=== PATIENT | male | born 1985 | race Caucasian/White ===

== ENCOUNTER → 2017-07-15 | Outpatient (CLI) | payer OTHER ==
[~2017-07-15] MED LIST: Bactrim Ds Tab1 EACH PO; CEPH500 PO; CRUTCH2 USE; CYCL10 PO; Cephalexin250 MG/5 M PO; HYDACE5325 PO; HYDCHL12.5 PO; Keflex500 MG PO; LORA2 PO; NAPR500 PO; OXYACE5T PO; RXLORA1 PO; SULTRIEL PO
[2017-07-15 18:27] LABS: BASOPHILS ABSOLUTE AUTO 0.04 K/mm3 (0.00-0.23); BASOPHILS PERCENT AUTO 1 % (0-2); EOSINOPHILS ABSOLUTE AUTO 0.06 K/mm3 (0.00-0.68); EOSINOPHILS PERCENT AUTO 1 % (0-6); Hematocrit 43.7 % (37.0-53.0); Hemoglobin 14.5 g/dL (13.5-17.5); IMMATURE GRAN ABSOLUTE AUTO 0.01 K/mm3 (0.00-0.10); IMMATURE GRAN PERCENT AUTO 0 % (0-1); LYMPHOCYTES ABSOLUTE AUTO 0.65 K/mm3 (0.84-5.20); LYMPHOCYTES PERCENT AUTO 15 % (21-46); MONOCYTES ABSOLUTE AUTO 0.65 K/mm3 (0.16-1.47); MONOCYTES PERCENT AUTO 15 % (4-13); Mean Corpuscular HGB 31.9 pg (26.0-34.0); Mean Corpuscular HGB Conc 33.2 g/dL (31.5-36.5); Mean Corpuscular Volume 96 fL (80-100); NEUTROPHILS ABSOLUTE AUTO 2.81 K/mm3 (1.96-9.15); NEUTROPHILS PERCENT AUTO 67 % (41-73); RDW Standard Deviation 42.2 fL (35.1-46.3); Red Blood Cell Count 4.55 M/mm3 (4.30-5.90); White Blood Cell Count 4.22 K/mm3 (4.00-11.30)
[2017-07-15 18:36] LABS: Mean Platelet Volume 11.6 fL (9.1-12.4); Platelet Count 101 K/mm3 (150-400)
[2017-07-15 18:40] LABS: Alanine Aminotransfer (ALT/SGP 49 U/L (12-78); Albumin, Blood 3.8 g/dL (3.4-5.0); Albumin/Globulin Ratio 0.8 (0.8-1.8); Alk Phos 173 U/L (50-136); Anion Gap 10 mmol/L (6-16); Aspartate Aminotrans (AST/SGOT 108 U/L (12-37); Bilirubin, Total 1.1 mg/dL (0.1-1.0); Blood Urea Nitrogen 5 mg/dL (8-24); CO2, Blood 28 mmol/L (21-32); Calcium, Blood 9.1 mg/dL (8.5-10.1); Chloride, Blood 97 mmol/L (98-108); Glomerular Filtration Rate >60 (60-); Glucose, Blood 88 mg/dL (70-99); Potassium, Blood 4.1 mmol/L (3.5-5.5); Sodium, Blood 135 mmol/L (136-145); Total Protein, Blood 8.8 g/dL (6.4-8.2)
== END | disposition home or self-care (01) ==
LOC: LAB 11:15
PROVIDERS: Nurse Practitioner Family
DX: Z00.00 Encounter for general adult medical examination without abnormal findings (principal); E55.9 Vitamin D deficiency, unspecified; I10 Essential (primary) hypertension
CPT/HCPCS: 80053; 82306; 84443; 85025

== ENCOUNTER 2018-10-29 20:50 | Emergency (ER) | payer OTHER ==
[~2018-10-29] VITALS: Ht 170.2 cm; Wt 59.0 kg
== END 2018-10-30 01:20 | disposition home or self-care (01) ==
LOC: ER 20:50
DX: S92.002A Unspecified fracture of left calcaneus, initial encounter for closed fracture (principal); Y30.XXXA Falling, jumping or pushed from a high place, undetermined intent, initial encounter
CPT/HCPCS: 29515; 73650; 73700; 96372-59; 99283-25; J1885

== ENCOUNTER 2020-03-16 19:40 | Emergency (ER) | payer OTHER ==
[~2020-03-16] VITALS: Ht 172.7 cm; Wt 63.5 kg
[2020-03-17] MEDS ORDERED: Norco 5-325 Ta1 EACH PO (08:40)
== END 2020-03-16 21:45 | disposition home or self-care (01) ==
LOC: ER 19:40
DX: S42.032A Displaced fracture of lateral end of left clavicle, initial encounter for closed fracture (principal); F17.220 Nicotine dependence, chewing tobacco, uncomplicated; V86.55XA Driver of 3- or 4- wheeled all-terrain vehicle (ATV) injured in nontraffic accident, initial encounter
CPT/HCPCS: 73030; 96372; 99283-25; J1885

== ENCOUNTER 2021-04-08 06:42 | Inpatient (IN) | payer OTHER ==
[~2021-04-08] VITALS: Ht 172.7 cm; Wt 65.5 kg
[~2021-04-08 06:42] MED LIST changes: +Norco 5-325 Ta1 EACH PO
[2021-04-08 07:58] LABS: Hematocrit 46.8 % (37.0-53.0); Hemoglobin 15.8 g/dL (13.5-17.5); Mean Corpuscular HGB 31.3 pg (26.0-34.0); Mean Corpuscular HGB Conc 33.8 g/dL (31.5-36.5); Mean Corpuscular Volume 93 fL (80-100); Mean Platelet Volume 8.9 fL (9.1-12.4); Platelet Count 193 K/mm3 (150-400); RDW Coefficient Variation 12.1 % (11.7-14.2); RDW Standard Deviation 41.9 fL (35.1-46.3); Red Blood Cell Count 5.05 M/mm3 (4.30-5.90); White Blood Cell Count 17.59 K/mm3 (4.00-11.30)
[2021-04-08 08:19] LABS: Alanine Aminotransfer (ALT/SGP 34 U/L (12-78); Albumin, Blood 2.9 g/dL (3.4-5.0); Albumin/Globulin Ratio 0.6 (0.8-1.8); Alk Phos 54 U/L (50-136); Anion Gap 13 mmol/L (6-16); Aspartate Aminotrans (AST/SGOT 58 U/L (12-37); Bilirubin, Total 1.3 mg/dL (0.1-1.0); Blood Urea Nitrogen 9 mg/dL (8-24); Bun/Creatinine Ratio 13.5 (12.0-20.0); CO2, Blood 21 mmol/L (21-32); Calcium, Blood 8.3 mg/dL (8.5-10.1); Chloride, Blood 94 mmol/L (98-108); Creatinine, Blood 0.67 mg/dL (0.60-1.20); Ethanol (Alcohol), Blood, Med 29 mg/dL; Globulin, Blood 4.9 g/dL (2.2-4.0); Glomerular Filtration Rate >60 (60-); Glucose, Blood 94 mg/dL (70-99); Potassium, Blood 3.6 mmol/L (3.5-5.5); Sodium, Blood 128 mmol/L (136-145); Total Protein, Blood 7.8 g/dL (6.4-8.2)
[2021-04-08 08:26] LABS: BAND PERCENT MAN 21 % (0-8); BASOPHILS PERCENT MAN 0 % (0-2); EOSINOPHILS PERCENT MAN 0 % (0-6); METAMYELOCYTE PERCENT MAN 4 % (0-0); MONOCYTES ABSOLUTE MAN 0.17 K/mm3 (0.16-1.47); MONOCYTES PERCENT MAN 1 % (4-13); MYELOCYTE ABSOLUTE MAN 0.35 K/mm3 (0.00-0.00); MYELOCYTE PERCENT MAN 2 % (0-0); NEUTROPHILS ABSOLUTE MAN 16.35 K/mm3 (1.96-9.15); SEG NEUTROPHILS PERCENT MAN 72 % (41-73); TOTAL CELLS COUNTED 100
[2021-04-08 08:34] LABS: Influenza A, PCR NEGATIVE (NEGATIVE); Influenza B, PCR NEGATIVE (NEGATIVE); SARS-Cov-2 (COVID-19) PCR, MMC NEGATIVE (NEGATIVE)
[2021-04-08 08:40] LABS: Resp Syncytial Virus, PCR POSITIVE (NEGATIVE)
--- NOTE | 2021-04-08 15:28 | NUR ---
UPDATE PHYSICIAN UPDATED THAT PT HAS BROWN/RED MUCOUS. ORDERS FOR SPUTUM SAMPLE. ORDERS FOR PT TO HAVE COUGH SUPPRESSENT. TEMP ELEVATED TO OVER 103. MEDICATED, SEE EMAR. MEDICATED FOR COUGH WITH TESSALON PEARLS. PT BEGAN TO HAVE INCREASE IN COUGHING ONCE ATTEMPTED TO GIVE MED WITH APPLESAUCE ASPIRATION PRECAUTIONS PER REPORT AND EHR ORDER. PT HAD INCREASE IN OXYGEN NEEDS. NOW ON 12 L OF OXYGEN VIA OXYMIZER AND OXYGEN SATURATION 93%. PHYSICIAN AWARE. NO PT TO BE STRICT NPO. NO ORAL MEDS. ORDERS FOR STAT CPT WITH RT. AND O2 THERAPY. WILL CONT TO MONITOR.
[2021-04-08 17:43] LABS: Source, Urine Clean Catch
[2021-04-08 17:46] LABS: Appearance, Urine Clear (Clear); Bilirubin, Urine Neg (Neg); Blood, Urine Neg (Neg); Color, Urine Yellow (P-Yellow); Glucose Qualitative, Urine Neg (Neg); Ketones, Urine Neg (Neg); Leukocyte Esterase, Urine Neg (Neg); Nitrite, Urine Neg (Neg); Protein, Urine 1+ (Neg); Urobilinogen, Urine NORM (Normal)
--- NOTE | 2021-04-08 18:05 | NUR ---
SHIFT SUMMARY PT ALERT AND ORIENTED. ARRIVAL TO UNIT FROM ED DURING SHIFT. HR SINUS TACH. BP STABLE. NO CP OR PRESSURE REPORTED. PAIN IN R RIB RESOLVED WITH IV TRAMADOL. CIWA SCORE 6-8. TRAMADOL DECREASED TEMP FROM 103 TO 98, SEE EMAR. SEIZURE PADS AND BED ALARM IN PLACE FOR PT SAFETY. OXYGEN SATURATION MAINTAINED ABOVE 90% ON 4.5 L OF OXYGEN VIA NC AT THIS TIME. CALL LIGHT IN REACH. WILL CONT TO MONITOR UNTIL REPROT GIVEN TO NIGHTSHIFT RN.
--- NOTE | 2021-04-08 18:13 | NUR ---
UPDATE PT'S TEMP INCREASING TO 102. PT UNABLE TO TOLERATE PO MEDS AT THIS TIME. ICE PACKS TO PT'S ARMPITS, GROIN AND NECK. CLINICAL RESEARCH TECHNICIAN TO CONTACT PHYSICIAN REGARDING SUPPOSITORY TYLENOL.
[2021-04-09 03:47] LABS: Hematocrit 42.9 % (37.0-53.0); Hemoglobin 14.1 g/dL (13.5-17.5); Mean Corpuscular HGB 31.1 pg (26.0-34.0); Mean Corpuscular HGB Conc 32.9 g/dL (31.5-36.5); Mean Corpuscular Volume 95 fL (80-100); Mean Platelet Volume 9.5 fL (9.1-12.4); Platelet Count 99 K/mm3 (150-400); RDW Coefficient Variation 12.2 % (11.7-14.2); RDW Standard Deviation 42.6 fL (35.1-46.3); Red Blood Cell Count 4.54 M/mm3 (4.30-5.90); White Blood Cell Count 7.28 K/mm3 (4.00-11.30)
[2021-04-09 04:05] LABS: BAND PERCENT MAN 35 % (0-8); BASOPHILS PERCENT MAN 0 % (0-2); EOSINOPHILS PERCENT MAN 0 % (0-6); LYMPHOCYTES ABSOLUTE MAN 0.14 K/mm3 (0.84-5.20); LYMPHOCYTES PERCENT MAN 2 % (21-46); METAMYELOCYTE ABSOLUTE MAN 0.07 K/mm3 (0.00-0.00); METAMYELOCYTE PERCENT MAN 1 % (0-0); MONOCYTES ABSOLUTE MAN 0.43 K/mm3 (0.16-1.47); MONOCYTES PERCENT MAN 6 % (4-13); NEUTROPHILS ABSOLUTE MAN 6.62 K/mm3 (1.96-9.15); SEG NEUTROPHILS PERCENT MAN 56 % (41-73); TOTAL CELLS COUNTED 100
[2021-04-09 04:11] LABS: Magnesium, Blood 2.1 mg/dL (1.6-2.4)
[2021-04-09 04:34] LABS: Alanine Aminotransfer (ALT/SGP 25 U/L (12-78); Albumin, Blood 1.8 g/dL (3.4-5.0); Albumin/Globulin Ratio 0.5 (0.8-1.8); Alk Phos 26 U/L (50-136); Anion Gap 8 mmol/L (6-16); Aspartate Aminotrans (AST/SGOT 51 U/L (12-37); Bilirubin, Total 1.7 mg/dL (0.1-1.0); Blood Urea Nitrogen 10 mg/dL (8-24); Bun/Creatinine Ratio 15.8 (12.0-20.0); CO2, Blood 24 mmol/L (21-32); Calcium, Blood 7.7 mg/dL (8.5-10.1); Chloride, Blood 104 mmol/L (98-108); Creatinine, Blood 0.63 mg/dL (0.60-1.20); Globulin, Blood 3.8 g/dL (2.2-4.0); Glomerular Filtration Rate >60 (60-); Glucose, Blood 84 mg/dL (70-99); Potassium, Blood 3.6 mmol/L (3.5-5.5); Sodium, Blood 136 mmol/L (136-145)
[2021-04-09 04:40] LABS: Total Protein, Blood 5.6 g/dL (6.4-8.2)
--- NOTE | 2021-04-09 05:38 | NUR ---
SHIFT SUMMARY: PT RESTED THROUGHOUT SHIFT, DENIES S/S WITHDRAWL, UPSET THAT HE CANT HAVE ANYTHING BY MOUTH AND FEELS HE IS BEING TREATED POORLY. EDUCATED PT THAT HE IS GETTING IV FLUIDS, AND HE CAN DISCUSS NPO STATUS WITH MD THIS MORNING. EDUCATED ON POTENTIAL ASPIRATION, ETC, BUT PT NOT RECEPTIVE. TELE SHOWS ST WITH RATES UP TO 140'S WHEN OOB TO USE URINAL, LOW 100'S WHEN RESTING, VOIDING IN URINAL, TMAX 101.8, REC'D TYLENOL SUPPOSITORY THIS AM. HAS HARSH NON-PRODUCTIVE COUGH, O2 AT 5L VIA N/C WITH DATS IN LOW 90'S. BED LOCKED AND LOW, CALL FITZPATRICK IN REACH. TEREZA CARDONA
[2021-04-09] MEDS ORDERED: Acetaminophen650 M1 PO (17:16)
[2021-04-09] MEDS ORDERED: BENZ100A PO (17:16)
[2021-04-09] MEDS ORDERED: Q-Tussin100 MG/5 M PO (17:17)
[2021-04-09] MEDS ORDERED: AMOCLA875 PO (17:17)
--- NOTE | 2021-04-09 17:46 | NUR ---
DISCHARGE PT ALERT AND ORIENTED. VS STABLE. PT STATES HE WILL LEAVE WHETHER OR NOT HE GETS DC ORDERS. PT EDUCATED ON IMPORTANCE OF STAYING AND BENEFITS. PT STATES HE WOULD STILL PREFER TO LEAVE. DR. ZAPIEN CALLED AND NOTIFIED. ORDERS FOR DISCHARGE PROVIDED. PT GIVEN DC INSTRUCTIONS AND EDUATED ON MEDICATIONS. PT STATES "I JUST WANT TO GO HOME AND DRINK". AT BEDSIDE. PT TAKEN OUT BY WC.
== END 2021-04-09 17:37 | disposition home or self-care (01) | DRG 871 ==
LOC: ER 06:42 → ERHOLD 08:57 → PCU 13:45
PROVIDERS: Emergency Medicine; ADMIT Internal Medicine
DX: A41.89 Other specified sepsis (principal); J12.1 Respiratory syncytial virus pneumonia; E87.1 Hypo-osmolality and hyponatremia; Z20.822 Contact with and (suspected) exposure to COVID-19; R65.20 Severe sepsis without septic shock; E83.42 Hypomagnesemia; Z98.890 Other specified postprocedural states; F10.20 Alcohol dependence, uncomplicated; F17.220 Nicotine dependence, chewing tobacco, uncomplicated
CPT/HCPCS: 0241U; 36415; 71045; 80053; 83605; 83735; 85025; 87070; 87205; 93005; 93010; 94762; 96365; 96366; 96368; 96375; 99285-25; A9270; G0480; J0456; J0696; J1170; J1885; J2060; J2405; J2543; J3010; J3411; J3475; J7030; J7042; J7050; J7120

== ENCOUNTER 2021-11-25 19:52 | Emergency (ER) | payer OTHER ==
[~2021-11-25] VITALS: Ht 172.7 cm; Wt 60.0 kg
[~2021-11-25 19:52] MED LIST changes: +AMOCLA875 PO; +Acetaminophen650 M1 PO; +BENZ100A PO; +Q-Tussin100 MG/5 M PO
[2021-11-25] MEDS ORDERED: IBU800 MG PO (21:29)
[2021-11-25] MEDS ORDERED: CYCL10 PO (21:34)
== END 2021-11-25 21:37 | disposition home or self-care (01) ==
LOC: ER 19:52
DX: S16.1XXA Strain of muscle, fascia and tendon at neck level, initial encounter (principal); M25.512 Pain in left shoulder; W55.29XA Other contact with cow, initial encounter; F17.220 Nicotine dependence, chewing tobacco, uncomplicated
CPT/HCPCS: 72040; 73030; A9270

== ENCOUNTER 2022-09-02 21:02 | Emergency (ER) | payer OTHER ==
[~2022-09-02] VITALS: Ht 172.7 cm; Wt 63.5 kg
[~2022-09-02 21:02] MED LIST changes: +IBU800 MG PO
[2022-09-02 22:30] VITALS: BP 112/81
== END 2022-09-02 22:30 | disposition home or self-care (01) ==
LOC: ER 21:02
DX: S06.0X0A Concussion without loss of consciousness, initial encounter (principal); F17.220 Nicotine dependence, chewing tobacco, uncomplicated; Z79.899 Other long term (current) drug therapy; W21.07XA Struck by softball, initial encounter
CPT/HCPCS: 99283

== ENCOUNTER 2024-12-19 18:08 | Emergency (ER) | payer OTHER ==
[~2024-12-19] VITALS: Ht 172.7 cm; Wt 61.2 kg
[2024-12-19 20:07] VITALS: BP 112/84
== END 2024-12-19 20:08 | disposition home or self-care (01) ==
LOC: ER 18:08
DX: M79.605 Pain in left leg (principal); Z79.2 Long term (current) use of antibiotics; Z79.899 Other long term (current) drug therapy; F17.220 Nicotine dependence, chewing tobacco, uncomplicated
CPT/HCPCS: 73590; 93971

== ENCOUNTER 2025-01-24 19:52 | Emergency (ER) | payer OTHER ==
[~2025-01-24] VITALS: Ht 180.3 cm; Wt 59.0 kg
[2025-01-24] MEDS ORDERED: Ketorolac Tromethamine 30mg Vial IM ONE (20:40)
[2025-01-24] MEDS ORDERED: GABA300 PO ×2 (22:15→22:25)
[2025-01-24 22:25] VITALS: BP 144/103
[2025-02-06] MEDS ORDERED: OXAYDO5 M1 PO (08:59)
== END 2025-01-24 22:30 | disposition home or self-care (01) ==
LOC: ER 19:52
DX: S82.242A Displaced spiral fracture of shaft of left tibia, initial encounter for closed fracture (principal); F17.220 Nicotine dependence, chewing tobacco, uncomplicated; Z79.899 Other long term (current) drug therapy; W55.82XA Struck by other mammals, initial encounter
CPT/HCPCS: 73590; 96372; 99283-25; A9270; J1885

== ENCOUNTER 2025-02-24 08:33 | Emergency (ER) | payer OTHER ==
[~2025-02-24] VITALS: Ht 172.7 cm; Wt 59.9 kg
[~2025-02-24 08:33] MED LIST changes: +GABA300 PO; +OXAYDO5 M1 PO
[2025-02-24 08:45] VITALS: BP 130/104
[2025-02-24] MEDS ORDERED: Percocet 5-3251 EACH PO (09:14)
== END 2025-02-24 09:47 | disposition home or self-care (01) ==
LOC: ER 08:33
DX: S82.242A Displaced spiral fracture of shaft of left tibia, initial encounter for closed fracture (principal); W19.XXXA Unspecified fall, initial encounter; Z87.891 Personal history of nicotine dependence
CPT/HCPCS: 27825; 73590; 73600; 99283-25